=== PATIENT | male | born 1985 ===

== ENCOUNTER 2022-01-05 11:40 | Emergency (ER) | payer BC, OTHER ==
[2022-01-05] MEDS ORDERED: Diphtheria,Pertussis(Acell),Tetanus Vaccine 0.5 ML SDV IM ONE (12:00)
[2022-01-05 13:19] VITALS: BP 112/85; PULSE 98
== END 2022-01-05 12:15 | disposition home or self-care (01) ==
LOC: LB.ED 11:40
DX: S91.342A Puncture wound with foreign body, left foot, initial encounter (principal); Z23 Encounter for immunization; W45.0XXA Nail entering through skin, initial encounter
CPT/HCPCS: 90471; 99283-25

== ENCOUNTER 2022-01-20 08:40 | Emergency (ER) | payer OTHER ==
[2022-01-20 09:04] VITALS: BP 121/81; PULSE 80
[2022-01-20] MEDS ORDERED: Ketorolac 60 MG/2 ML SDV IM ONE (09:07)
[2022-01-20] MEDS ORDERED: methylPREDNISolone Sodium Succinate 125 MG/2 ML SDV IVPUSH ONE (09:37)
[2022-01-20] MEDS ORDERED: methylPREDNISolone Sodium Succinate 125 MG/2 ML SDV ONE (09:40)
== END 2022-01-20 10:02 | disposition home or self-care (01) ==
LOC: LB.ED 08:40
DX: M54.41 Lumbago with sciatica, right side (principal)
CPT/HCPCS: 96372; 96374; 99283-25; J1885; J2930